=== PATIENT | female | born 1995 | race Two or more races ===

== ENCOUNTER 2019-04-09 09:08 | Outpatient (CLI) | payer OTHER | END 2019-04-09 09:15 | disposition home or self-care (01) | LOC: SONOGRAMA 09:08 | DX: E03.8 Other specified hypothyroidism (principal) ==

== ENCOUNTER 2019-09-14 12:16 | Outpatient (CLI) | payer OTHER | END 2019-09-14 12:30 | disposition home or self-care (01) | LOC: SONOGRAMA 12:16 | DX: E04.1 Nontoxic single thyroid nodule (principal) ==

== ENCOUNTER → 2020-05-03 | Outpatient (CLI) | payer OTHER | END | disposition home or self-care (01) | LOC: RAD 09:21 | DX: E04.1 Nontoxic single thyroid nodule (principal) ==